=== PATIENT | male | born 1955 | race Two or more races ===

== ENCOUNTER 2020-06-18 11:04 | Emergency (ER) | payer MEDICAID ==
[~2020-06-18] VITALS: Ht 167.6 cm; Wt 70.8 kg
--- NOTE | 2020-06-18 11:37 | NUR ---
PT IS IN ROOM #2B. DR DAVALOS EVALUATED THE PT.
--- NOTE | 2020-06-18 17:27 | NUR ---
PT WAS RE-EVALUATED BY DR DAVALOS. PT WAS D/C'd FROM ER. D/C INSTRUCTIONS GIVEN TO THE PT BY DR DAVALOS.
[2020-06-18 17:30] VITALS: BP 149/88
--- NOTE | 2020-06-18 17:31 | NUR ---
GAIT IS STABLE. NO SOB, NO N/V, PT DENIES PAIN.
== END 2020-06-18 17:32 | disposition home or self-care (01) ==
LOC: EDBD 11:04 → ER 11:04
DX: F10.229 Alcohol dependence with intoxication, unspecified (principal); Z59.0 Homelessness
CPT/HCPCS: A4663

== ENCOUNTER 2021-02-09 15:49 | Emergency (ER) | payer MEDICAID ==
[~2021-02-09] VITALS: Ht 172.7 cm; Wt 72.6 kg
[2021-02-09 16:43] LABS: CREATININE 0.9 mg/dL (0.6-1.3)
[2021-02-09 16:50] LABS: BILIRUBIN,DIRECT 0.3 mg/dL (0.0-0.2); BILIRUBIN,TOTAL 0.7 mg/dL (0.2-1.0); TOTAL PROTEIN, SERUM 8.4 g/dL (6.4-8.2)
[2021-02-09 16:52] LABS: BASOPHILS # (AUTO) 0.1 K/uL (0.0-8.0); BASOPHILS % (AUTO) 1.3 % (0.0-2.0); EOSINOPHILS % (AUTO) 0.5 % (0.0-7.0); HEMATOCRIT 37.5 % (36.7-47.1); HEMOGLOBIN 12.3 g/dL (12.5-16.3); LYMPHOCYTES # (AUTO) 3.2 K/uL (20.0-40.0); LYMPHOCYTES % (AUTO) 36.4 % (20.5-51.5); MEAN CORPUSCULAR HEMOGLOBIN 31.3 uug (23.8-33.4); MEAN CORPUSCULAR HGB CONC 33 g/dL (32.5-36.3); MEAN CORPUSCULAR VOLUME 95.5 fL (73.0-96.2); MONOCYTES # (AUTO) 1.8 K/uL (2.0-10.0); MONOCYTES % (AUTO) 20.1 % (0.0-11.0); NEUTROPHILS # (AUTO) 3.7 K/uL (1.8-8.9); NEUTROPHILS % (AUTO) 41.7 % (38.5-71.5); PLATELET COUNT (AUTO) 415 K/uL (152-348); RED BLOOD CELL COUNT(AUTO) 3.93 MIL/uL (4.06-5.63); WHITE BLOOD COUNT (AUTO) 8.9 K/uL (3.6-10.2)
[2021-02-09 16:56] LABS: THYROID STIMULATING HORMONE 1.57 mIU/mL (0.358-3.740)
[2021-02-09 17:18] LABS: LYMPHOCYTES % (MANUAL) 31 % (20-40); MONOCYTES % (MANUAL) 19 % (2-10); NEUTROPHILS % (MANUAL) 50 % (42-75)
--- NOTE | 2021-02-09 23:47 | NUR ---
Rj gloria in [facility] - 02/09/21 at 2348 by OLUORADI Patient to be transferred to [facility] to have his ERCP tomorrow. They will arrange procedure.
[2021-02-10 01:07] VITALS: BP 118/78
--- NOTE | 2021-02-10 01:07 | NUR ---
Patient discharged to home in stable condition. Written and verbal after care instructions given. Patient verbalizes understanding of instructions. Stressed follow up or return to ER for worsening s/s. VSS. Homeless pack given. Steady gait. No distress. Instructed to not drive. Clothes and food given.
== END 2021-02-10 01:09 | disposition home or self-care (01) ==
LOC: ER 15:53
DX: F10.229 Alcohol dependence with intoxication, unspecified (principal); Y90.8 Blood alcohol level of 240 mg/100 ml or more; Z59.0 Homelessness; R94.31 Abnormal electrocardiogram [ECG] [EKG]; R79.89 Other specified abnormal findings of blood chemistry
CPT/HCPCS: 70030-TC; 71045; 84443; 85025; 93005; A4663; G0480